=== PATIENT | female | born 1965 | race Caucasian/White ===

== ENCOUNTER 2016-10-31 16:00 | Emergency (ER) | payer OTHER, MEDICARE ==
[~2016-10-31] VITALS: Ht 167.6 cm; Wt 65.8 kg
[~2016-10-31 16:00] MED LIST: ADVAIR 250-501 EACH INH; ATIVAN1 M1 PO; BIOTIN10000 MCG PO; BUPROPION XL150 MG PO; CLINDAMYCIN PHO30 GM TOP; CYCLOBENZAPRINE10 M1 PO; DEXILANT60 M1 PO; FERROUS SULFAT325 M2 PO; FERROUS SULFAT325 M3 PO; HYDRALAZINE HCL25 M1; HYDRALAZINE HCL25 M1 PO; HYDROXYZINE PAM25 M2 PO; IBUPROFEN800 M1 PO; MAGNESIUM500 M2 PO; MELATONIN10 M5 PO; METOPROLOL SUC100 M2 PO; METOPROLOL SUCC50 M2 PO; MULTI-DAY VITA1 EACH PO; NASONEX17 GM NASB; NORCO 5-325 TA1 EACH PO; OXYBUTYNIN CHLO10 M1 PO; PROAIR HFA8.5 GM INH; REQUIP2 M1 PO; SENNA LAXATIVE1 EACH PO; TRAZODONE HCL100 M1 PO; TRAZODONE HCL300 M1 PO; TRILEPTAL300 M1 PO; VALACYCLOVIR1000 MG PO; VALTREX1000 MG PO; VENTOLIN HFA18 GM INH; VISTARIL25 M1 PO; VISTARIL50 M1 PO; VITAMIN B-121000 MC3 PO; VITAMIN B-2100 MG PO; VITAMIN D2000 UNI1 PO; VITAMIN D2000 UNIT PO; WELLBUTRIN XL300 M2 PO
[2016-10-31] MEDS ORDERED: B-1100 MG PO (17:32)
--- NOTE | 2016-10-31 17:35 | ED INFLUENZA/URI COMPLAINT ---
History of Present Illness General Chief Complaint: General Adult Stated Complaint: PER PT I NEED MY HEART EVALUATED, & I HAVE A BUG Source: patient, old records Exam Limitations: no limitations Vital Signs & Intake/Output Vital Signs & Intake/Output Vital Signs Date Time Temp Pulse Resp B/P Pulse O2 O2 Flow FiO2 Ox Delivery Rate 10/31 1819 96.1 84 18 135/88 99 Room Air Allergies Coded Allergies: birch (Intermediate, FLU LIKE SYMPTOMS 01/20/16) aspirin (Mild, DIZZINESS 04/11/16) Penicillins ("I WHOLE BODY FLIPS OUT" 01/20/16) Sulfa (Sulfonamide Antibiotics) (I DON'T REMEMBER 01/20/16) cephalexin (VOMITING 10/31/16) ciprofloxacin (ABDOMINAL DISTRESS 04/11/16) divalproex sodium (From DEPAKOTE) (I DON'T REMEMBER 01/20/16) hydralazine (DYSPNEA 09/12/16) oxybutynin (UNKNOWN PER PT 10/31/16) prednisone (I DON'T REMEMBER 01/20/16) Reconcile Medications Albuterol Sulfate (Ventolin Hfa) 90 MCG HFA.AER.AD 2 PUF INH PRN ASTHMA ( Reported) Biotin 10,000 MCG CAPSULE 2 CAP PO QPM SUPPLEMENT (Reported) Bupropion HCl (Wellbutrin XL) 300 MG TAB.ER.24H 1 TAB PO QAM MENTAL HEALTH/ SMOKING CESSATIO (Reported) Cholecalciferol (Vitamin D3) (Vitamin D) 2,000 UNIT TABLET 1 TAB PO DAILY SUPPLEMENT (Reported) Cyanocobalamin (Vitamin B-12) (Unknown Strength) TABLET (Unknown Dose) PO DAILY SUPPLEMENT (Reported) Cyclobenzaprine HCl 10 MG TABLET 2 TAB PO BID MUSCLE SPASMS (Reported) Dexlansoprazole (Dexilant) 60 MG CAP.DR.BP 1 CAP PO DAILY GI (Reported) Ferrous Sulfate 325 MG (65 MG IRON) TABLET 1 TAB PO DAILY SUPPLEMENT ( Reported) Fluticasone/Salmeterol (Advair 250-50 Diskus) 1 EACH BLST.W.DEV 1 PUF INH BID copd (Reported) Hydrocodone/Acetaminophen ([place] 5-325 Tablet) 1 EACH TABLET 1 TAB PO PRN PAIN (Reported) Hydroxyzine Pamoate 25 MG CAPSULE 1 CAP PO DAILY UNKNOWN (Reported) Ibuprofen 800 MG TABLET 1 TAB PO TID PRN PAIN (Reported) Magnesium Oxide (Magnesium) 500 MG CAPSULE 6 TAB PO QPM SUPPLEMENT (Reported) Melatonin 10 MG CAPSULE 2 CAP PO QPM SLEEP (Reported) Metoprolol Succinate 50 MG TAB.ER.24H 1 TAB PO BID BP (Reported) Multivitamin (Multi-Day Vitamins) 1 EACH TABLET 1 TAB PO DAILY SUPPLEMENT ( Reported) Ondansetron (Zofran Odt) 4 MG TAB.RAPDIS 1 TAB SL TID NAUSEA Oxybutynin Chloride (Oxybutynin Chloride ER) 10 MG TAB.ER.24 1 TAB PO DAILY BLADDER (Reported) Riboflavin (Vitamin B-2) (Unknown Strength) TABLET (Unknown Dose) PO DAILY SUPPLEMENT (Reported) Ropinirole HCl (Requip) 2 MG TABLET 1 TAB PO QPM RESTLESS LEGS (Reported) Sennosides/Docusate Sodium (Senna Laxative Tablet) 1 EACH TABLET 1 TAB PO BID STOOL SOFTENER Thiamine HCl (B-1) 100 MG TABLET 1 TAB PO DAILY MIGRAINES (Reported) Trazodone HCl 300 MG TABLET 1 TAB PO QPM SLEEP (Reported) Valacyclovir HCl (Valacyclovir) 1,000 MG TABLET 1 TAB PO DAILY ANTIVIRAL ( Reported) Triage Note: REPORTS TO HAVE A COLD FOR THE LAST 4 DAYS WITH INTERMITTENT NAUSEA. SHE IS ALSO REQUESTING A FULL CARDIAC WORK UP SUGGESTED BY HER MOTHER. UNABLE TO EVALUATE HER VITALS THE BP CUFF WAS TOO TIGHT AND IT WAS MAKING HER FIBROMYALGIA WORSE SHE STATED. REFUSED VITALS. Triage Nurses Notes Reviewed? yes Onset: Abrupt Duration: day(s): (4), constant Timing: recent history Severity: mild Severity Numbers: 3 Prior Episodes/Possible Cause: occassional episodes No Modifying Factors: none Associated Symptoms: denies HPI: 50-year-old female presents emergency room complaining of a nonproductive cough and rhinorrhea congestion, bilateral ear pain sore throat and nausea vomiting diarrhea for the past 4 days. She portable sick contacts at home with similar symptoms. She denies any abdominal pain chest pain shortness of breath. There are no modifying factors or associated symptoms she has not taken anything for her symptoms or sought care for the symptoms until today. The patient does not smoke she denies alcohol use. There is no radiation of her symptoms no chest pain palpitations dizziness or lightheadedness. (KIAN TORO,CHAYITO) Past History Travel History Traveled to [place] past 21 day No Medical History Any Pertinent Medical History? 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 No (CHAYITO MARSHALL) Review of Systems Review of Systems Constitutional: Reports: see HPI. All Other Systems: Reviewed and Negative Comments Review of systems: See HPI, All other systems negative. Constitutional, no chills no fever, no malaise HEENT: No visual changes no sore throat congestion Cardiovascular: No chest pain , no palpitation Skin, no jaundice no rashes, no change in skin Respiratory: No dyspnea cough no sputum GI: No nausea vomiting,diarrhea : No dysuria No hematuria, no frequency, Muscle skeletal: No joint pain, no joint swelling, no back pain, no neck pain, Neurologic: No numbness no headache Psych: No stress Heme/endocrine: No bruising no bleeding Immunology: No lymphadenopathy (CHAYITO MARSHALL) Physical Exam Physical Exam General Appearance: well developed/nourished, no apparent distress, alert, awake Ears, Nose, Throat: normal ENT inspection, moist mucous membrane, hearing grossly normal, Tympanic normal, pharynx normal Comments: Well-developed well-nourished person in no acute distress Head/Face: Atraumatic, no maxillary/frontal sinus tenderness, no facial swelling Eyes: PERRL, EOMI, no conjunctival injection. No nystagmus Ear:External auditory canal and Tympanic membranes clear, no erythema, no FB. Nose: atraumatic.Normal inspection: No bleeding Throat: Moist mucous membranes.Pharynx normal. No pharyngeal erythema/exudate seen. No stridor/drooling or assymetry. No swelling or edema. Neck: Supple, no lymphadenopathy, FROM Back: Nontender, no CVA tenderness. Full range of motion Cardiovascular: Regular rate and rhythms no murmurs rubs or gallops, normal JVP Respiratory: Chest nontender.There were no bony deformities, no asymmetry. No respiratory distress. Patient speaking in full complete sentences. Breath sounds clear to auscultation bilaterally: NO W/R/R Abdomen: Soft, nontender nondistended, no appreciable organomegaly. Normal bowel sounds. No rebound/guarding, Extremity: No edema, full range of motion of extremities Neuro: Alert oriented x3, motor sensory normal, There were no obvious focal neurologic abnormalities. Skin: No appreciable rash on exposed skin, skin is warm and dry. Psych: Mood and affect is normal, memory and judgment is normal. Core Measures Severe Sepsis Present: No Septic Shock Present: No (CHAYITO MARSHALL) Progress Differential Diagnosis: influenza, pneumonia, pharyngitis, sinusitis, bronchitis viral syndrome gastroenteritis Plan of Care: Orders Procedure Date/time Status Add-on Test (ER Only) 10/31 181 Active LYME TITRE 10/31 175 Active TROPONIN LEVEL 10/31 174 Complete CBC WITHOUT DIFFERENTIAL 10/31 1745 Complete BASIC METABOLIC PANEL 10/31 174 Complete Laboratory Tests 10/31/16 1758: Anion Gap 7, Estimated GFR > 60, BUN/Creatinine Ratio 17.5, Glucose 92, Calcium 9.0, Troponin I 0.01, CBC w Diff NO MAN DIFF REQ, RBC 3.84 L, MCV 94.6, MCH 31.9 H, RDW 12.6, MPV 8.4, Gran % 63.8, Lymphocytes % 25.1, Monocytes % 7.5, Eosinophils % 3.2, Basophils % 0.4, Absolute Granulocytes 3.4, Absolute Lymphocytes 1.3, Absolute Monocytes 0.4, Absolute Eosinophils 0.2, Absolute Basophils 0, PUBS MCHC 33.8, Lyme Disease Antibody Pending Labs ordered old records reviewed chest x-ray ordered Discussed with patient unable her lab results x-ray findings need for supportive care Tylenol Motrin for perception for Zofran provided the patient was provided an antibiotic after speaking with her primary care physician today. Advised close follow-up with her primary care physician return with any concerns she is comfortable plan cleared for discharge (CHAYITO MARSHALL) Diagnostic Imaging: Viewed by Me: Radiology Read. Discussed w/RAD: Radiology Read. Radiology Impression: PATIENT: GARY SCHUMACHER PRESENT AGE: 50 PATIENT ACCOUNT NO: [id number] : 64 LOCATION: [facility] ORDERING PHYSICIAN: CHAYITO TORO SERVICE DATE: 10/31/16 EXAM TYPE: RAD - XRY-CHEST XRAY, PA AND LATERAL EXAMINATION: XR CHEST CLINICAL INFORMATION: Cough. Evaluate for pneumonia. COMPARISON: Chest radiograph 09/12/2016. TECHNIQUE: 2 views of the chest were obtained. FINDINGS: Lungs are clear and well expanded. There is no focal consolidative disease, pleural effusion, or pneumothorax. The cardiac silhouette and upper mediastinal contours are normal. No acute osseous finding. IMPRESSION: Normal chest radiograph. DICTATED BY: CHUCHO WALLS MD DATE/TIME DICTATED:10/31/161835 ONCOLOGY RN: TONY DATE/TIME TRANSCRIBED:10/31/161835 CONFIDENTIAL, DO NOT COPY WITHOUT APPROPRIATE AUTHORIZATION. <Electronically signed in Other Vendor System> SIGNED BY: CHUCHO WALLS MD 10/31/16 184 Initial ED EKG: none (CHAYITO MARSHALL) Departure Departure Time of Disposition: 1912 Disposition: HOME OR SELF CARE Condition: Stable Clinical Impression Primary Impression: Bronchitis Referrals: DANIEL ROSS (PCP/Family) Additional Instructions: Follow-up with your primary care physician tomorrow. drink plenty of fluids Zofran if needed for nausea return with any concerns Departure Forms: Customer Survey General Discharge Information Prescriptions: Current Visit Scripts Ondansetron (Zofran Odt) 1 TAB SL TID #10 TAB (CHAYITO MARSHALL) PA/SENIOR POWER SCHEDULER Co-Sign Statement Statement: ED Attending supervision documentation- [] I saw and evaluated the patient. I have also reviewed all the pertinent lab results and diagnostic results. I agree with the findings and the plan of care as documented in the PA's/SENIOR POWER SCHEDULER's documentation. [X] I have reviewed the ED Record and agree with the PA's/SENIOR POWER SCHEDULER's documentation. [] Additions or exceptions (if any) to the PAs/SENIOR POWER SCHEDULER's note and plan are summarized below: [] (CHENG CHAVEZ DO)
[2016-10-31 18:10] LABS: ABSOLUTE BASOPHIL COUNT 0 /CUMM (0.0-0.2); ABSOLUTE EOSINOPHIL COUNT 0.2 /CUMM (0.0-0.7); ABSOLUTE GRANULOCYTE CT 3.4 /CUMM (1.4-6.5); ABSOLUTE LYMPH COUNT 1.3 /CUMM (1.2-3.4); ABSOLUTE MONOCYTE COUNT 0.4 /CUMM (0.10-0.60); BASOPHIL % 0.4 % (0.0-2.0); EOSINOPHIL % 3.2 % (0-5); GRANULOCYTE % 63.8 % (42.2-75.2); HEMATOCRIT 36.3 % (37-47); MEAN CORPUSCULAR HGB 31.9 PG (27.0-31.0); MEAN CORPUSCULAR HGB CONC 33.8 G/DL (33.0-37.0); MEAN CORPUSCULAR VOLUME 94.6 FL (81.0-99.0); MEAN PLATELET VOLUME 8.4 FL (7.4-10.4); PLATELET COUNT 162 /CUMM (130-400); RBC DISTRIBUTION WIDTH 12.6 % (11.5-14.5); RED BLOOD CELL CT 3.84 /CUMM (4.20-5.40); WHITE BLOOD CELL COUNT 5.3 /CUMM (4.8-10.8)
[2016-10-31 18:19] VITALS: BP 135/88
--- NOTE | 2016-10-31 18:41 | RADIOLOGY REPORT ---
EXAMINATION: XR CHEST CLINICAL INFORMATION: Cough. Evaluate for pneumonia. COMPARISON: Chest radiograph 09/12/2016. TECHNIQUE: 2 views of the chest were obtained. FINDINGS: Lungs are clear and well expanded. There is no focal consolidative disease, pleural effusion, or pneumothorax. The cardiac silhouette and upper mediastinal contours are normal. No acute osseous finding. IMPRESSION: Normal chest radiograph.
[2016-10-31] MEDS ORDERED: ZOFRAN ODT4 M1 SL (19:14)
== END 2016-10-31 19:33 ==
LOC: ERH 16:00
PROVIDERS: Physician Assistant Medical
DX: J40 Bronchitis, not specified as acute or chronic (principal)
CPT/HCPCS: 86618

== ENCOUNTER 2017-02-09 02:07 | Emergency (ER) | payer OTHER, MEDICARE ==
[~2017-02-09] VITALS: Ht 165.1 cm; Wt 68.0 kg
[~2017-02-09 02:07] MED LIST changes: +B-1100 MG PO; +ZOFRAN ODT4 M1 SL
--- NOTE | 2017-02-09 02:17 | ED AMS/SEIZURE/WEAK/DIZZY ---
History of Present Illness General Chief Complaint: ETOH/Drug Related Complaint Stated Complaint: BAD TRIP, ITCHINESS, BIBA Source: patient Exam Limitations: no limitations Vital Signs & Intake/Output Vital Signs & Intake/Output Vital Signs Date Time Temp Pulse Resp B/P B/P Pulse O2 O2 Flow FiO2 Mean Ox Delivery Rate 02/10 620 98.2 88 16 144/77 97 02/09 0242 97 Room Air 02/09 0224 97.6 89 20 183/99 97 Room Air Allergies Coded Allergies: birch (Intermediate, FLU LIKE SYMPTOMS 01/20/16) aspirin (Mild, DIZZINESS 04/11/16) Penicillins ("I WHOLE BODY FLIPS OUT" 01/20/16) Sulfa (Sulfonamide Antibiotics) (I DON'T REMEMBER 01/20/16) cephalexin (VOMITING 10/31/16) ciprofloxacin (ABDOMINAL DISTRESS 04/11/16) divalproex sodium (From DEPAKOTE) (I DON'T REMEMBER 01/20/16) hydralazine (DYSPNEA 09/12/16) oxybutynin (UNKNOWN PER PT 10/31/16) prednisone (I DON'T REMEMBER 01/20/16) Reconcile Medications Albuterol Sulfate (Ventolin Hfa) 90 MCG HFA.AER.AD 2 PUF INH PRN ASTHMA ( Reported) Biotin 10,000 MCG CAPSULE 2 CAP PO QPM SUPPLEMENT (Reported) Bupropion HCl (Wellbutrin XL) 300 MG TAB.ER.24H 1 TAB PO QAM MENTAL HEALTH/ SMOKING CESSATIO (Reported) Cholecalciferol (Vitamin D3) (Vitamin D) 2,000 UNIT TABLET 1 TAB PO DAILY SUPPLEMENT (Reported) Cyanocobalamin (Vitamin B-12) (Unknown Strength) TABLET (Unknown Dose) PO DAILY SUPPLEMENT (Reported) Cyclobenzaprine HCl 10 MG TABLET 2 TAB PO BID MUSCLE SPASMS (Reported) Dexlansoprazole (Dexilant) 60 MG CAP.DR.BP 1 CAP PO DAILY GI (Reported) Ferrous Sulfate 325 MG (65 MG IRON) TABLET 1 TAB PO DAILY SUPPLEMENT ( Reported) Fluticasone/Salmeterol (Advair 250-50 Diskus) 1 EACH BLST.W.DEV 1 PUF INH BID copd (Reported) Hydrocodone/Acetaminophen ([place] 5-325 Tablet) 1 EACH TABLET 1 TAB PO PRN PAIN (Reported) Hydroxyzine Pamoate 25 MG CAPSULE 1 CAP PO DAILY UNKNOWN (Reported) Ibuprofen 800 MG TABLET 1 TAB PO TID PRN PAIN (Reported) Magnesium Oxide (Magnesium) 500 MG CAPSULE 6 TAB PO QPM SUPPLEMENT (Reported) Melatonin 10 MG CAPSULE 2 CAP PO QPM SLEEP (Reported) Metoprolol Succinate 50 MG TAB.ER.24H 1 TAB PO BID BP (Reported) Multivitamin (Multi-Day Vitamins) 1 EACH TABLET 1 TAB PO DAILY SUPPLEMENT ( Reported) Ondansetron (Zofran Odt) 4 MG TAB.RAPDIS 1 TAB SL TID NAUSEA Oxybutynin Chloride (Oxybutynin Chloride ER) 10 MG TAB.ER.24 1 TAB PO DAILY BLADDER (Reported) Riboflavin (Vitamin B-2) (Unknown Strength) TABLET (Unknown Dose) PO DAILY SUPPLEMENT (Reported) Ropinirole HCl (Requip) 2 MG TABLET 1 TAB PO QPM RESTLESS LEGS (Reported) Sennosides/Docusate Sodium (Senna Laxative Tablet) 1 EACH TABLET 1 TAB PO BID STOOL SOFTENER Thiamine HCl (B-1) 100 MG TABLET 1 TAB PO DAILY MIGRAINES (Reported) Trazodone HCl 300 MG TABLET 1 TAB PO QPM SLEEP (Reported) Valacyclovir HCl (Valacyclovir) 1,000 MG TABLET 1 TAB PO DAILY ANTIVIRAL ( Reported) Triage Note: PT BIBA AFTER SON CALLED 911 DUE TO PT HAVING A "BAD TRIP". PT STATES SHE SMOKED AN UNKNOWN SUBSTANCE. PT STATES SHE FELT LIKE SHE WAS SPINNING, HAVING UNCONTROLLABLE ITCHING, AND NAUSEA. Triage Nurses Notes Reviewed? yes Onset: Abrupt Duration: hour(s): Timing: single episode today Injury Environment: home Severity: moderate Modifying Factors: Improves With: rest. Associated Symptoms: "I feel really weird." HPI: 51-year-old woman presents with increased agitation and itching after smoking crack cocaine a few minutes ago. She states that, "when I spoke the crack, it tasted funny. I then felt really weird and all crazy in the head. I keep itching." She notes no fever chills shortness of breath or chest pain. She is otherwise well and has no other concerns. She denies suicidality, homicidality, hallucinations. (JULIET RAMOS,RUDOLPH Mendoza) Past History Medical History Any Pertinent Medical History? 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 No (JULIET RAMOS,RUDOLPH Mendoza) Review of Systems Review of Systems Constitutional: Reports: no symptoms. EENTM: Reports: no symptoms. Respiratory: Reports: no symptoms. Cardiovascular: Reports: no symptoms. GI: Reports: no symptoms. Genitourinary: Reports: no symptoms. Musculoskeletal: Reports: no symptoms. Skin: Reports: no symptoms. Neurological/Psychological: Reports: no symptoms. Hematologic/Endocrine: Reports: no symptoms. Immunologic/Allergic: Reports: no symptoms. All Other Systems: Reviewed and Negative (JULIET RAMOS,RUDOLPH Mendoza) Physical Exam Physical Exam General Appearance: well developed/nourished, moderate distress Head: atraumatic, normal appearance Eyes: Bilateral: normal appearance, PERRL, EOMI. Ears, Nose, Throat: normal pharynx, normal ENT inspection Neck: normal inspection, supple, full range of motion Respiratory: normal breath sounds, chest non-tender, no respiratory distress, quiet respiration, lungs clear Cardiovascular: regular rate/rhythm Gastrointestinal: normal bowel sounds, soft, non-tender, no organomegaly Back: normal inspection, normal range of motion Extremities: normal range of motion Neurologic/Psych: no motor/sensory deficits, awake, alert, oriented x 3 Skin: intact, normal color, warm/dry Core Measures ACS in differential dx? No CVA/TIA Diagnosis: No Severe Sepsis Present: No Septic Shock Present: No (JULIET RAMOS,RUDOLPH Mendoza) Progress Differential Diagnosis: Cocaine abuse versus methamphetamine abuse versus other Plan of Care: Orders Procedure Date/time Status Regular Diet 02/09 B Active URINE DRUG SCREEN FOR ER ONLY 02/09 253 Complete TROPONIN LEVEL 02/09 253 Complete ETHANOL 02/09 253 Complete COMPREHENSIVE METABOLIC PANEL 02/09 253 Complete CBC WITHOUT DIFFERENTIAL 02/09 253 Complete EKG 02/09 253 Active Laboratory Tests 02/09/17 0702: Urine Opiates Screen 461.00, Methadone Screen 49, Barbiturate Screen < 60, Ur Phencyclidine Scrn < 6.00, Amphetamines Screen < 100, U Benzodiazepines Scrn < 85, Urine Cocaine Screen > 1000.0 H, Urine Cannabis Screen < 5.00 02/09/17 0410: Anion Gap 10, Estimated GFR > 60, BUN/Creatinine Ratio 16.7, Glucose 142 H, Calcium 8.9, Total Bilirubin 0.5, AST 35, ALT 44, Alkaline Phosphatase 58, Troponin I < 0.01, Total Protein 6.4, Albumin 4.0, Globulin 2.4, Albumin/ Globulin Ratio 1.7, CBC w Diff NO MAN DIFF REQ, RBC 4.10 L, MCV 91.2, MCH 30.7, RDW 11.3 L, MPV 8.1, Gran % 83.8 H, Lymphocytes % 10.2 L, Monocytes % 4.8, Eosinophils % 1.1, Basophils % 0.1, Absolute Granulocytes 7.0 H, Absolute Lymphocytes 0.8 L, Absolute Monocytes 0.4, Absolute Eosinophils 0.1, Absolute Basophils 0, PUBS MCHC 33.7, Serum Alcohol < 10.0 Initial ED EKG: normal axis, normal intervals, normal p-waves, normal QRS complex, normal sinus rhythm Hand-Off Endorsed To: BRIEN RAMOS,CHENG Miranda Endorsed Time: 0700 Pending: labs, other (clinical sobriety) (JULIET RAMOS,RUDOLPH Mendoza) Comments: 02/09/2017 8:44:45 AM patient signed 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 She is now awake alert and conversant. She refers multiple life stressors and would like to begin seeing a psychiatrist and grief counseling. Her current primary care physician is in [place] so I will give her a referral to the [facility] for convenience. Patient will call her son for a ride home. (BRIEN RAMOS,CHENG Miranda) Departure Departure Disposition: HOME OR SELF CARE Condition: Stable Departure Forms: Customer Survey General Discharge Information (JULIET RAMOS,RUDOLPH Mendoza) Departure Clinical Impression Primary Impression: Cocaine abuse Secondary Impressions: Grief reaction Referrals: DANIEL ROSS (PCP/Family) [facility] Additional Instructions: Avoid drugs and alcohol. Follow-up with the [facility] for general medical evaluation as soon as possible. Please also contact the [place] outpatient psychiatry department and brief counseling. Return if any concerns or sudden worsening. (BRIEN RAMOS,CHENG Miranda) Critical Care Note Critical Care Note Critical Care Time: 30-74 min (CHENG TESFAYE MD)
[2017-02-09 04:19] LABS: ABSOLUTE BASOPHIL COUNT 0 /CUMM (0.0-0.2); ABSOLUTE EOSINOPHIL COUNT 0.1 /CUMM (0.0-0.7); ABSOLUTE LYMPH COUNT 0.8 /CUMM (1.2-3.4); ABSOLUTE MONOCYTE COUNT 0.4 /CUMM (0.10-0.60); BASOPHIL % 0.1 % (0.0-2.0); EOSINOPHIL % 1.1 % (0-5); GRANULOCYTE % 83.8 % (42.2-75.2); HEMATOCRIT 37.4 % (37-47); MEAN CORPUSCULAR HGB 30.7 PG (27.0-31.0); MEAN CORPUSCULAR HGB CONC 33.7 G/DL (33.0-37.0); MEAN CORPUSCULAR VOLUME 91.2 FL (81.0-99.0); MEAN PLATELET VOLUME 8.1 FL (7.4-10.4); PLATELET COUNT 184 /CUMM (130-400); RBC DISTRIBUTION WIDTH 11.3 % (11.5-14.5); WHITE BLOOD CELL COUNT 8.4 /CUMM (4.8-10.8)
[2017-02-09 08:59] VITALS: BP 140/70
== END 2017-02-09 08:59 ==
LOC: ERH 02:07
PROVIDERS: Pediatrics
DX: F14.10 Cocaine abuse, uncomplicated (principal); F43.20 Adjustment disorder, unspecified; I10 Essential (primary) hypertension
CPT/HCPCS: 80307; 93005; 93010; G0480